=== PATIENT | female | born 1955 | race Caucasian/White ===

== ENCOUNTER → 2017-04-01 | Outpatient (CLI) | payer OTHER ==
[~2017-04-01] MED LIST: CALCIUM 500+D1 EAC2 PO; FISH OIL 1,0001 EAC5 PO; MIGRAINE RELIEF PO; MULTIVITAMINS PO
== END ==
LOC: NUC 03-30 14:17
DX: M85.88 Other specified disorders of bone density and structure, other site (principal); N91.2 Amenorrhea, unspecified; I10 Essential (primary) hypertension; E11.9 Type 2 diabetes mellitus without complications; Z78.0 Asymptomatic menopausal state